=== PATIENT | male | born 1970 | race Caucasian/White ===

== ENCOUNTER 2024-06-05 06:39 | Emergency (ER) | payer BC, SELFPAY ==
[2024-06-05] VITALS (9 sets, daily range): BP systolic 132–166; BP diastolic 87–105; PULSE 62–83; RESP 14–21; TEMP 36.6; O2SAT 95–100; BMI 26.0
--- NOTE | 2024-06-05 | ECG_ITS ---
APPROVED REPORT Exam: Resting ECG HR:69 bpm ECG Measurements Heart Rate 69 AXES WA 141 P 47 QRSd 95 QRS 55 QT 359 T 66 QTc 378 Conclusion SINUS RHYTHM NORMAL ECG UNCONFIRMED REPORT Electronically signed by : Aisha Valdes, 06/05/2024 07:30:23
--- NOTE | 2024-06-05 06:51 | XR_ITS ---
FINAL REPORT CLINICAL HISTORY: chest fluttering COMPARISON: None FINDINGS: Two views of the chest were obtained. The heart size and pulmonary vascularity are within normal limits. The mediastinum is normal. There is mild atelectasis or scar present in the left lung. There is no pneumothorax. Postoperative changes are noted in the left chest, the right base of the neck, and the right shoulder. IMPRESSION: Postoperative changes as described, with mild scar or atelectasis present in the left lung. Reviewed, Interpreted and Dictated by Marcelo Miranda III, MD Transcribed by Calista Olguin Authenticated and . [facility]
[2024-06-05] MEDS: ASPIRIN 81MG CHEWABLE TABLET 324 MG PO (06:54)
[2024-06-05 06:59] LABS: Basophils # 0.1 K/mm3 (0-0.2); Basophils % 1.4 % (0.1-2.0); Eosinophils # 0.2 K/mm3 (0.0-0.4); Eosinophils % 1.7 % (0.1-12.0); Hematocrit 47.2 % (42.0-52.0); Hemoglobin 16.4 g/dL (14.1-18.0); Lymphocytes # 3.5 K/mm3 (0.7-4.5); Lymphocytes % 37.9 % (10-50); Mean Corpuscular HGB Conc 34.9 g/dL (31.8-35.4); Mean Corpuscular Hemoglobin 34.4 pg (27.0-31.2); Mean Corpuscular Volume 98.7 fl (80-94); Mean Platelet Volume 8.1 fl (7.4-10.4); Monocytes # 0.6 K/mm3 (0.1-1.0); Monocytes % 6.2 % (1.7-9.3); Neutrophils # 4.9 K/mm3 (1.8-7.8); Neutrophils % 52.9 % (37.0-80.0); Platelet Count 360 K/mm3 (142-424); Red Blood Count 4.78 M/mm3 (4.60-6.20); Red Cell Distribution Width 12.8 % (11.5-17.5); White Blood Count 9.2 K/mm3 (4.8-10.8)
[2024-06-05 07:01] LABS: Albumin Level 4.6 g/dl (3.5-5.0); Chloride 103 mmol/L (98-107); Potassium 3.8 mmoL/L (3.5-5.1); Sodium 135 mmol/L (136-145)
[2024-06-05 07:04] LABS: Alanine Aminotransferase 39 U/L (12-78); Albumin/Globulin Ratio 1.4 (1.1-1.8); Alkaline Phosphatase 62 U/L (38-126); Anion Gap 11.8 mEq/L (5-15); Aspartate Amino Transferase 37 U/L (17-59); Bilirubin,Total 0.8 mg/dl (0.2-1.3); Blood Urea Nitrogen 12 mg/dl (9-20); Calcium 9.3 mg/dl (8.4-10.2); Carbon Dioxide 24 mmol/L (22.0-30.0); Creatinine Clearance Estimated 133 mL/min (50-200); Estimated Glomerular Filt Rate 102 ml/min (>60); GFR (African American) 123 ML/MIN (>60); Globulin 3.3 g/dL (1.3-3.2); Glucose 120 mg/dl (74-100); Total Protein,Serum 7.9 g/dl (6.3-8.2)
--- NOTE | 2024-06-05 07:14 | ED_ITS ---
Discharge Plan Disposition Patient Disposition: Home, Self-Care Condition: Good Prescriptions Prescriptions: No Action Suprep Bowel Prep Kit 17.5-3.13-1.6 gram recon soln See Rx Instructions PO .COMPLEX Qty: 177 0RF Rx Instructions: DILUTE; drink full amount early evening before AND next morning at least 2 hr before procedure; follow w 32 oz. water PO Referrals Follow up/Referrals: Thiago Benjamin MD [Staff Physician] - See instructions (Palpitations. Holter f/u) Provider,MD Marcell [Primary Care Provider] - See instructions Activity Restrictions/Add. Instructions Additional Instructions/Restrictions: You were seen today for palpitations. At this time, your evaluation was negative for signs of emergent causes of your symptoms. A Holter monitor was placed and you will have cardiology follow-up on at 11 AM. Please contact the cardiology office if you need to cancel or change your appointment. It is also advised that you follow-up with your primary care provider for annual screening. Please return to ED if your symptoms worsen, change in location, change in severity, new symptoms develop or if you become concerned for your health. Clinical Impressions Clinical Impression: Palpitations Stand Alone Forms Stand Alone Forms: Work/School Release Instructions Patient Instructions: DI for Palpitations Print Language Print Language: Malaysian Discharge ED Provider: Aisha Valdes Adult HPI General Chief complaint: Arrhythmia/Palpitations Stated complaint: feeling flushed, fluttering in chest Time Seen by Provider: 06/05/24 07:00 Mode of Arrival: Ambulatory Source of Information: Patient Limitations: No Limitations Description of Symptoms (Recalled from ER Triage Doc. by RN): Pt c/o feeling flushed & intermittent Fluttering in chest since wednesday. Denies soa/pain/fever. Denies cardiac hx. pt A&O, resps even and nonlabored. History of Present Illness HPI narrative: Patient is a 53-year-old male presenting with palpitations and fluttering sensation in his chest. Patient states he has felt this way over the past weekend and on his way to work today, he felt increased fluttering and decided to get evaluated. Patient states his symptoms started without any activity and was associated with mild lightheadedness. He denies passing out. He denies recent URI, fever, chills, nausea, vomiting, bowel or bladder dysfunction. Patient denies significant past medical history, but states he has not seen a doctor in quite a few years. Patient states he does not take any medications regularly. He denies smoking or vaping. He denies blood thinner or aspirin use. He notes a family history of arrhythmias, but denies personal history of arrhythmias. Related Data Previous Rx's ?Medication ?Instructions ?Recorded sodium,potassium,mag sulfates 17.5 See Rx Instructions PO .COMPLEX 08/11/21 gram-3.13 gram-1.6 gram oral soln #177 mL (Suprep Bowel Prep Kit) Allergies Allergy/AdvReac Type Severity Reaction Status Date / Time No Known Allergies Allergy Verified 06/05/24 06:49 [facility] Disclaimer: The information contained in this section may have been updated after the patient was seen, as this information can be updated by other users. Social History Smoking Status: Never smoker alcohol intake: current current occupational status: employed ROS Obtained: Yes All systems reviewed & no additional complaints except as documented Physical Exam General General appearance: alert and in no apparent distress ENT ENT exam: Present normal exam, normal oropharynx, mucous membranes moist and normal external ear exam Neck Neck exam: Present normal inspection, full ROM and trachea midline; Absent meningismus or lymphadenopathy Chest Chest inspection: Present normal inspection and symmetric chest wall rise; Absent tenderness Respiratory Respiratory exam: Present normal lung sounds bilaterally; Absent respiratory distress or wheezes Cardiovascular Cardiovascular exam: Present regular rate, normal rhythm and normal heart sounds; Absent JVD Abdominal Exam Abdominal exam: Present soft and normal bowel sounds; Absent distention, tenderness or guarding Extremities Exam Extremities exam: Present normal inspection, full ROM and normal capillary refill; Absent edema or calf tenderness Neurological Exam Neurological exam: Present alert and oriented X3 Medical Decision Making Medical Records Screening: Per USPSTF and CDC recommendations, given the prevalence of disease in our region, it is our hospital?s policy to screen for HIV and viral Hepatitis for all patients aged 18 and over and those with ongoing risk factors. Thierry Inquiry Pt receiving controlled substance: No Vital Signs: 06/05/24 06:40 06/05/24 06:52 06/05/24 07:00 Temperature 97.8 F Temperature Source Oral Pulse Rate 68 65 Pulse Rate [Apical] 83 Respiratory Rate 18 17 19 Blood Pressure 142/98 H 152/100 H Blood Pressure [Left Arm] 166/105 H Blood Pressure Mean [Left Arm] 125 Blood Pressure Source 02 Sat by Pulse Oximetry 100 95 96 Oxygen Delivery Method Room Air 06/05/24 07:30 06/05/24 08:00 06/05/24 08:30 Temperature Temperature Source Pulse Rate 66 64 62 Pulse Rate [Apical] Respiratory Rate 14 16 15 Blood Pressure 132/89 146/95 H 136/95 H Blood Pressure [Left Arm] Blood Pressure Mean [Left Arm] Blood Pressure Source 02 Sat by Pulse Oximetry 95 96 97 Oxygen Delivery Method Room Air 06/05/24 09:00 06/05/24 09:19 06/05/24 09:30 Temperature 97.8 F Temperature Source Oral Pulse Rate 62 74 67 Pulse Rate [Apical] Respiratory Rate 14 16 21 Blood Pressure 132/90 132/87 132/87 Blood Pressure [Left Arm] Blood Pressure Mean [Left Arm] Blood Pressure Source Automatic Cuff 02 Sat by Pulse Oximetry 96 96 Oxygen Delivery Method Room Air Room Air Room Air Lab Data Lab Results 06/05/24 06:40: WBC 9.2, RBC 4.78, Hgb 16.4, Hct 47.2, MCV 98.7 H, MCH 34.4 H, MCHC 34.9, RDW 12.8, Plt Count 360, MPV 8.1, Neut % (Auto) 52.9, Lymph % (Auto) 37.9, [place] % (Auto) 6.2, Eos % (Auto) 1.7, Baso % (Auto) 1.4, Neut # (Auto) 4.9, Lymph # (Auto) 3.5, [place] # (Auto) 0.6, Eos # (Auto) 0.2, Baso # (Auto) 0.1, S odium 135 L, Potassium 3.8, Chloride 103, Carbon Dioxide 24, Anion Gap 11.8, BUN 12, Creatinine 0.80, Estimated Creat Clear 133, Estimated GFR 102, Est GFR ( Amer) 123, Glucose 120 H, Calcium 9.3, Total Bilirubin 0.8, AST 37, ALT 39, Alkaline Phosphatase 62, Troponin I < 0.01, Total Protein 7.9, Albumin 4.6, Globulin 3.3 H, Albumin/Globulin Ratio 1.4 06/05/24 08:37: Troponin I < 0.01 06/05/24 06:40 06/05/24 06:40 Orders (Tests/Meds): ED MEDICATIONS Discontinued Medications Generic Name Dose Route Start Last Admin Trade Name Zackery PRN Reason Stop Dose Admin Aspirin 324 mg 06/05/24 06:52 06/05/24 06:54 Aspirin 81mg Chewable Tablet PO 06/05/24 06:53 324 mg ONCE ONE Administration ORDERS Category Date Time Status XR chest 2V Stat Exams 06/05/24 06:51 Completed CBC w/Auto Diff [Complete Blood Count Auto Diff] Stat Lab 06/05/24 06:40 Completed Comprehensive Metabolic Panel Stat Lab 06/05/24 06:40 Completed HIV (1&2) Antibody Rapid Stat Lab 06/05/24 06:48 Received Hep C Ab with Reflex to RNA Stat Lab 06/05/24 06:40 Received Troponin I Q3H Lab 06/05/24 08:37 Completed Troponin I Stat Lab 06/05/24 06:40 Completed ECG holter initial pfn Stat Y 06/05/24 09:26 Completed HEART Score History (anamnesis): Slightly suspicious ECG: Normal Age: 45-65 years Risk factors: No known risk factors Troponin: </= normal limit HEART Score: 1 Medical Decision Narrative: Patient is a 53-year-old male presenting with palpitation sensation. According to the patient, he has no past medical history and takes no medications frequently. However patient has not seen a doctor recently. Patient is not a smoker. Differential diagnosis includes but is not limited to, atrial fibrillation, ACS, PE, URI, RAD, esophageal spasm, GERD, among others. In order to evaluate patient for emergent causes of his symptoms, CBC, CMP, troponin, EKG, chest x-ray ordered. Patient treated with aspirin in the emergency department. Labs were personally reviewed by me and CBC was negative for leukocytosis, anemia, thrombocytopenia. Initial troponin <0.01. CMP with slight hyponatremia at 135, otherwise nonactionable. Patient's EKG was independently reviewed by me, and interpreted to be significant for NSR, normal axis, no acute ST-segment changes. CXR personally reviewed by me and negative for acute consolidation, pleural effusion, pulmonary edema or cardiomegaly. Based on initial troponin and patient's lack of chest pain, we will perform one additional troponin and reevaluate. Patient's 2-hour troponin was also <0.01. Upon reevaluation, patient remained hemodynamically stable and in no acute distress while in the emergency department. Patient was maintained on a bus monitor while he was in the department and had no abnormal rhythms. I personally spoke to a provider at Dr. Benjamin's office to arrange follow-up and Holter monitoring. A Holter monitor was placed on the patient prior to discharge from the emergency department and he was given follow-up at the consumer studies professor on 06/08 at 11 AM. Patient was in agreement with this plan. Patient given strict return precautions and discharged in stable condition. Aisha Valdes MD PGY-3, Emergency Medicine Critical Care Critical Care Time Critical Care Time: No
[2024-06-05 07:20] LABS: Troponin I < 0.01 ng/ml (0.00-0.034)
--- NOTE | 2024-06-05 08:20 | PC.NURSE ---
RN rounded on pt. no new complaints. call peña in reach.
[2024-06-05 09:16] LABS: Troponin I < 0.01 ng/ml (0.00-0.034)
--- NOTE | 2024-06-05 09:41 | PC.NURSE ---
respiratory at bedside to apply holter monitor emmanuel patient.
[2024-06-05 14:50] LABS: HIV (1&2) Antibody Rapid NONREACTIVE (NONREACTIVE)
[2024-06-06 05:11] LABS: HCV Ab Non Reactive (Non Reactive)
== END 2024-06-05 09:49 | disposition home or self-care (01) ==
PROVIDERS: Emergency Medicine; Emergency Provider Student in an Organized Health Care Education/Training Program
DX: R00.2 Palpitations (principal); R42 Dizziness and giddiness
CPT/HCPCS: 71046; 80053; 84484; 85025; 86803; 87389; 93005; 93225; 93226; 93227; 99284

== ENCOUNTER 2024-06-07 08:15 | Outpatient (CLI) | payer BC, SELFPAY ==
[2024-06-07 09:13] LABS: Alanine Aminotransferase 35 U/L (12-78); Albumin Level 4.4 g/dl (3.5-5.0); Albumin/Globulin Ratio 1.8 (1.1-1.8); Alkaline Phosphatase 55 U/L (38-126); Anion Gap 12.4 mEq/L (5-15); Aspartate Amino Transferase 30 U/L (17-59); Bilirubin,Total 0.5 mg/dl (0.2-1.3); Blood Urea Nitrogen 15 mg/dl (9-20); Calcium 9.7 mg/dl (8.4-10.2); Carbon Dioxide 26 mmol/L (22.0-30.0); Chloride 102 mmol/L (98-107); Estimated Glomerular Filt Rate 102 ml/min (>60); GFR (African American) 123 ML/MIN (>60); Globulin 2.4 g/dL (1.3-3.2); Glucose 99 mg/dl (74-100); Potassium 4.4 mmoL/L (3.5-5.1); Sodium 136 mmol/L (136-145); Total Protein,Serum 6.8 g/dl (6.3-8.2)
[2024-06-07 09:23] LABS: Hemoglobin A1C 5.5 % (4.0-6.0)
[2024-06-07 09:32] LABS: 25-OH Vitamin D, Total 30.2 ng/mL (30-100); Free Thyroxine Index 3.3 ug/dL (5.93-13.13); T4 (Thyroxine) 9.7 ug/dl (5.53-11.0); Triiodothryronine (T3) Uptake 34 % (23.5-40.5)
[2024-06-07 09:44] LABS: Prostate Specific Ag Screen 0.9 ng/ml (0.0-4.0)
[2024-06-07 09:45] LABS: Thyroid Stimulating Hormone 3.87 uIU/mL (0.465-4.68)
[2024-06-07 10:03] LABS: Vitamin B12 330 pg/mL (239-931)
[2024-06-10 09:54] LABS: Chol/HDL Ratio 5.2 (1-3.5); Cholesterol 213 mg/dl (140-200); HDL Cholesterol 41 mg/dl (40-60); Triglycerides 112 mg/dl (30-150); VLDL Cholesterol 22 mg/dL (0-40)
[2024-06-10 10:05] LABS: Direct LDL Cholesterol 155.49 mg/dL (100-129)
== END 2024-06-07 23:59 | disposition home or self-care (01) ==
LOC: LAB 08:19
PROVIDERS: PCP Internal Medicine Adolescent Medicine; Visit Provider Internal Medicine Adolescent Medicine
DX: R73.9 Hyperglycemia, unspecified (principal); R42 Dizziness and giddiness; R55 Syncope and collapse; R53.81 Other malaise; R53.83 Other fatigue
CPT/HCPCS: 36415; 80053; 80061; 82306; 82607; 83036; 83735; 84436; 84443; 84479; G0103